=== PATIENT | male | born 1965 | race Caucasian/White ===

== ENCOUNTER 2017-11-07 10:44 | Emergency (ER) | payer MEDICARE, OTHER ==
[2017-11-07] MEDS: INDOMETHACIN 50 MG PO (14:11)
== END 2017-11-07 15:00 | disposition home or self-care (01) ==
LOC: FTE 10:44
DX: R22.41 Localized swelling, mass and lump, right lower limb (principal); R22.42 Localized swelling, mass and lump, left lower limb; M79.671 Pain in right foot; M79.672 Pain in left foot
CPT/HCPCS: 99283

== ENCOUNTER 2018-02-14 08:12 | Emergency (ER) | payer MEDICARE, OTHER ==
[2018-02-14] MEDS: traMADol 50 MG TAB PO (08:46)
== END 2018-02-14 09:04 | disposition home or self-care (01) ==
LOC: FTE 08:12
DX: M10.9 Gout, unspecified (principal)
CPT/HCPCS: 99284

== ENCOUNTER 2018-02-25 23:23 | Inpatient (IN) | payer MEDICARE, OTHER ==
[2018-02-26] MEDS: ONDANSETRON (ODT) 4 MG TAB ODT (00:09)
[2018-02-26] MEDS: KETOROLAC 60 MG INJ IM (00:09)
[2018-02-26] MEDS: ACETAMINOPHEN 500 MG TAB PO (00:09)
[2018-02-26 00:38] LABS: WHITE BLOOD COUNT 14.6 10^3/ul (4.8-10.8)
[2018-02-26 00:38] LABS: ABNORMAL IP MESSAGE 1; HEMATOCRIT 21.1 % (42.0-52.0); MEAN CORPUSCULAR HEMOGLOBIN 18.4 pg (29.0-33.0); MEAN CORPUSCULAR HGB CONC 27.5 g/dl (32.0-37.0); MEAN PLATELET VOLUME 9.7 fl (7.4-10.4); NUCLEATED RED BLOOD CELLS% 0.1 /100WBC (0.0-0.0); PLATELET COUNT 546 10^3/UL (140-415); POSITIVE DIFF @See below; RED BLOOD COUNT 3.15 10^6/ul (4.70-6.10); RED CELL DISTRIBUTION WIDTH 17.4 % (11.5-14.5)
[2018-02-26 00:47] LABS: HEMOGLOBIN 5.8 g/dl (14.0-18.0); PATH REVIEW? YES
[2018-02-26 00:48] LABS: ADD MAN DIFF? YES
[2018-02-26 00:55] LABS: ADD UMIC NO; UR ASCORBIC ACID NEGATIVE (NEGATIVE); UR BILIRUBIN (Dip) NEGATIVE (NEGATIVE); UR BLOOD (Dip) NEGATIVE (NEGATIVE); UR CLARITY CLEAR (CLEAR); UR COLOR YELLOW (YELLOW); UR GLUCOSE (Dip) NEGATIVE (NEGATIVE); UR KETONES (Dip) NEGATIVE (NEGATIVE); UR LEUKOCYTE ESTERASE (Dip) NEGATIVE Leu/ul (NEGATIVE); UR NITRITE (Dip) NEGATIVE (NEGATIVE); UR SPECIFIC GRAVITY (Dip) 1.012 (1.003-1.030); UR TOTAL PROTEIN (Dip) NEGATIVE (NEGATIVE); UR UROBILINOGEN (Dip) 2+ mg/dL (NEGATIVE)
[2018-02-26 01:02] LABS: ALANINE AMINOTRANSFERASE 11 IU/L (13-69); ALBUMIN 3.5 g/dl (3.3-4.9); ALBUMIN/GLOBULIN RATIO 0.79; ALKALINE PHOSPHATASE 86 IU/L (42-121); ANION GAP 14 (8-16); ASPARTATE AMINO TRANSFERASE 15 IU/L (15-46); BILIRUBIN,INDIRECT 0.2 mg/dl (0-1.1); BILIRUBIN,TOTAL 0.2 mg/dl (0.2-1.3); BLOOD UREA NITROGEN 13 mg/dl (7-20); CALCIUM 9.2 mg/dl (8.4-10.2); CARBON DIOXIDE 26 mmol/L (21-31); CHLORIDE 103 mmol/L (97-110); CREATININE 1.15 mg/dl (0.61-1.24); GLUCOSE 157 mg/dl (70-220); LIPASE 77 U/L (23-300); POTASSIUM 3.2 mmol/L (3.5-5.1); SODIUM 140 mmol/L (135-144); TOTAL PROTEIN 7.9 g/dl (6.1-8.1)
[2018-02-26 01:59] LABS: ANISOCYTOSIS 3+ (0-0); EOSINOPHILS % (M) 1 % (0-7); GIANT THROMBO% (M) 2 % (0-0); HYPOCHROMASIA 3+ (0-0); LYMPHOCYTES #M 1.6 10^3/ul (0.8-2.9); LYMPHOCYTES % (M) 11 % (15-51); MICROCYTOSIS 3+ (0-0); MONOCYTE #M 0.5 10^3/ul (0.3-0.9); MONOCYTES % (M) 4 % (0-11); OVALOCYTES 1+ (0-0); PLATELET ESTIMATE INCREASED; POIKILOCYTOSIS 1+ (0-0); POLYCHROMASIA 2+ (0-0); PROMYELOCYTES #M 0.1 10^3/ul (0-0); PROMYELOCYTES % (M) 1 % (0-0); SEGMENTED NEUTROPHILS (M) % 83 % (39-77); TEAR DROP CELLS 1+ (0-0)
[2018-02-26] MEDS: FAMOTIDINE 20 MG INJ IV (02:20)
[2018-02-26] MEDS: ONDANSETRON 4 MG INJ IV (02:20)
[2018-02-26] MEDS: morphine 2 MG INJ IV (02:20)
[2018-02-26] MEDS: LIDOCAINE/MYLANTA 40 ML BTL PO (02:33)
[2018-02-26 02:58] LABS: INR 1.09; PARTIAL THROMBOPLASTIN TIME 36.2 Sec (25.0-35.0); PROTIME 14.2 Sec (11.9-14.9); PT RATIO 1.1
[2018-02-26 03:24] LABS: TROPONIN-I < 0.012 ng/ml (0.00-0.12)
[2018-02-26] MEDS ORDERED: POTASSIUM CHLORIDE (SR) 20 MEQ TAB PO (04:09)
[2018-02-26] MEDS ORDERED: CEFTRIAXONE 1 GM/50 ML (PMX) 50 ML IVPB (04:30)
[2018-02-26] MEDS: POTASSIUM CHLORIDE (SR) 20 MEQ TAB PO (05:22)
[2018-02-26] MEDS: CEFTRIAXONE 1 GM/50 ML (PMX) 50 ML IVPB (06:37)
[2018-02-26] MEDS ORDERED: ONDANSETRON 4 MG INJ IV (07:00)
[2018-02-26] MEDS ORDERED: NACL 0.9% 3 ML SYG IV (07:00)
[2018-02-26] MEDS: D5-NS + KCL 20 MEQ 1,000 ML IV ×2 (07:00→17:00)
[2018-02-26] MEDS: PANTOPRAZOLE 40 MG INJ IV ×2 (08:57→18:32)
[2018-02-26] MEDS: POTASSIUM CHLORIDE 100 ML IVPB (08:57)
[2018-02-26 09:13] LABS: ADD MAN DIFF? NO
[2018-02-26 09:18] LABS: WHITE BLOOD COUNT 9.3 10^3/ul (4.8-10.8)
[2018-02-26 09:18] LABS: ABNORMAL IP MESSAGE 1; BASOPHILS % 0.1 % (0.0-2.0); EOSINOPHILS # 0.5 10^3/ul (0.0-0.5); EOSINOPHILS % 5.7 % (0.0-7.0); HEMATOCRIT 18.9 % (42.0-52.0); LYMPHOCYTES # 1.6 10^3/ul (0.8-2.9); LYMPHOCYTES % 17.5 % (15.0-51.0); MEAN CORPUSCULAR HEMOGLOBIN 18.1 pg (29.0-33.0); MEAN CORPUSCULAR VOLUME 67.3 fl (82.0-101.0); MEAN PLATELET VOLUME 10.1 fl (7.4-10.4); MONOCYTE # 0.7 10^3/ul (0.3-0.9); MONOCYTES % 7.2 % (0.0-11.0); NEUTROPHIL # 6.5 10^3/ul (1.6-7.5); PLATELET COUNT 461 10^3/UL (140-415); POSITIVE DIFF @See below; RED BLOOD COUNT 2.81 10^6/ul (4.70-6.10); RED CELL DISTRIBUTION WIDTH 17.6 % (11.5-14.5)
[2018-02-26 09:27] LABS: HEMOGLOBIN 5.1 g/dl (14.0-18.0)
[2018-02-26 09:32] LABS: IRON 19 ug/dl (35-150)
[2018-02-26 09:41] LABS: % IRON SATURATION 6 % SAT (22-52); TOTAL IRON BINDING CAPACITY 327 ug/dl (241-421)
[2018-02-26 10:51] LABS: ALANINE AMINOTRANSFERASE 13 IU/L (13-69); ALBUMIN 3.1 g/dl (3.3-4.9); ALBUMIN/GLOBULIN RATIO 0.79; ALKALINE PHOSPHATASE 72 IU/L (42-121); ANION GAP 14 (8-16); ASPARTATE AMINO TRANSFERASE 12 IU/L (15-46); BILIRUBIN,INDIRECT 0.1 mg/dl (0-1.1); BILIRUBIN,TOTAL 0.1 mg/dl (0.2-1.3); BLOOD UREA NITROGEN 14 mg/dl (7-20); CALCIUM 8.3 mg/dl (8.4-10.2); CARBON DIOXIDE 23 mmol/L (21-31); CHLORIDE 104 mmol/L (97-110); CREATININE 1.17 mg/dl (0.61-1.24); GLUCOSE 150 mg/dl (70-220); MAGNESIUM 2.4 mg/dl (1.7-2.5); SODIUM 138 mmol/L (135-144)
[2018-02-26 10:54] LABS: POTASSIUM 2.8 mmol/L (3.5-5.1)
[2018-02-26 13:30] LABS: POTASSIUM 3.7 mmol/L (3.5-5.1)
[2018-02-26 15:27] LABS: HEPATITIS B SURFACE ANTIGEN NEGATIVE (NEGATIVE)
[2018-02-26 15:44] LABS: HEPATITIS B CORE ANTIBODY NEGATIVE (NEGATIVE)
[2018-02-26 15:45] LABS: HEPATITIS B SURFACE ANTIBODY NEGATIVE (NEGATIVE)
[2018-02-26 15:53] LABS: HEPATITIS C VIRAL ANTIBODY REACTIVE (NEGATIVE)
[2018-02-27] MEDS: D5-NS + KCL 20 MEQ 1,000 ML IV ×3 (06:03→20:16)
[2018-02-27] MEDS: PANTOPRAZOLE 40 MG INJ IV ×2 (06:03→17:07)
[2018-02-27 09:44] LABS: ADD MAN DIFF? NO
[2018-02-27 09:50] LABS: WHITE BLOOD COUNT 11.3 10^3/ul (4.8-10.8)
[2018-02-27 09:50] LABS: BASOPHIL # 0.1 10^3/ul (0.0-0.1); BASOPHILS % 0.4 % (0.0-2.0); EOSINOPHILS # 0.5 10^3/ul (0.0-0.5); EOSINOPHILS % 4.5 % (0.0-7.0); HEMATOCRIT 25.2 % (42.0-52.0); HEMOGLOBIN 7.6 g/dl (14.0-18.0); LYMPHOCYTES # 1.7 10^3/ul (0.8-2.9); LYMPHOCYTES % 14.8 % (15.0-51.0); MEAN CORPUSCULAR HEMOGLOBIN 21.5 pg (29.0-33.0); MEAN CORPUSCULAR HGB CONC 30.2 g/dl (32.0-37.0); MEAN CORPUSCULAR VOLUME 71.2 fl (82.0-101.0); MEAN PLATELET VOLUME 9.7 fl (7.4-10.4); MONOCYTE # 0.8 10^3/ul (0.3-0.9); MONOCYTES % 6.8 % (0.0-11.0); NEUTROPHIL # 8.2 10^3/ul (1.6-7.5); NEUTROPHILS % 72.5 % (39.0-77.0); NUCLEATED RED BLOOD CELLS% 0.2 /100WBC (0.0-0.0); PLATELET COUNT 482 10^3/UL (140-415); RED BLOOD COUNT 3.54 10^6/ul (4.70-6.10); RED CELL DISTRIBUTION WIDTH 19.8 % (11.5-14.5)
[2018-02-27 10:18] LABS: ALANINE AMINOTRANSFERASE 17 IU/L (13-69); ALBUMIN 3.1 g/dl (3.3-4.9); ALBUMIN/GLOBULIN RATIO 0.81; ALKALINE PHOSPHATASE 78 IU/L (42-121); ANION GAP 12 (8-16); ASPARTATE AMINO TRANSFERASE 13 IU/L (15-46); BILIRUBIN,INDIRECT 0.5 mg/dl (0-1.1); BILIRUBIN,TOTAL 0.5 mg/dl (0.2-1.3); BLOOD UREA NITROGEN 13 mg/dl (7-20); CALCIUM 8.3 mg/dl (8.4-10.2); CARBON DIOXIDE 24 mmol/L (21-31); CHLORIDE 110 mmol/L (97-110); CREATININE 1.11 mg/dl (0.61-1.24); GLUCOSE 109 mg/dl (70-220); POTASSIUM 3.7 mmol/L (3.5-5.1); SODIUM 142 mmol/L (135-144); TOTAL PROTEIN 6.9 g/dl (6.1-8.1)
[2018-02-27 10:22] LABS: PHOSPHORUS 3.2 mg/dl (2.5-4.9)
[2018-02-27 11:48] LABS: HEMOGLOBIN A1C 5.7 % (0-5.9)
[2018-02-27 15:37] LABS: PATH REVIEW CH
[2018-02-28] MEDS: morphine 2 MG INJ IV (02:59)
[2018-02-28] MEDS: PANTOPRAZOLE 40 MG INJ IV ×2 (05:41→17:38)
[2018-02-28] MEDS: MIDAZOLAM 1 MG/ML 2 ML INJ (07:35)
[2018-02-28] MEDS: LIDOCAINE 2% (SDV) 5 ML INJ (07:35)
[2018-02-28] MEDS: PROPOFOL 20 ML (07:36)
[2018-02-28 08:50] LABS: ADD MAN DIFF? NO
[2018-02-28 08:53] LABS: BASOPHIL # 0.1 10^3/ul (0.0-0.1); BASOPHILS % 0.5 % (0.0-2.0); EOSINOPHILS # 0.5 10^3/ul (0.0-0.5); HEMATOCRIT 24.5 % (42.0-52.0); HEMOGLOBIN 7.2 g/dl (14.0-18.0); LYMPHOCYTES # 2.1 10^3/ul (0.8-2.9); LYMPHOCYTES % 15.9 % (15.0-51.0); MEAN CORPUSCULAR HEMOGLOBIN 20.9 pg (29.0-33.0); MEAN CORPUSCULAR HGB CONC 29.4 g/dl (32.0-37.0); MEAN CORPUSCULAR VOLUME 71.2 fl (82.0-101.0); MEAN PLATELET VOLUME 9.9 fl (7.4-10.4); MONOCYTE # 0.9 10^3/ul (0.3-0.9); MONOCYTES % 6.8 % (0.0-11.0); NEUTROPHIL # 9.4 10^3/ul (1.6-7.5); NUCLEATED RED BLOOD CELLS% 0.2 /100WBC (0.0-0.0); PLATELET COUNT 578 10^3/UL (140-415); RED BLOOD COUNT 3.44 10^6/ul (4.70-6.10)
[2018-02-28] MEDS: D5-NS + KCL 20 MEQ 1,000 ML IV (09:00)
[2018-02-28 09:18] LABS: ALANINE AMINOTRANSFERASE 19 IU/L (13-69); ALBUMIN 3.2 g/dl (3.3-4.9); ALBUMIN/GLOBULIN RATIO 0.78; ALKALINE PHOSPHATASE 85 IU/L (42-121); ANION GAP 13 (8-16); ASPARTATE AMINO TRANSFERASE 16 IU/L (15-46); BILIRUBIN,INDIRECT 0.4 mg/dl (0-1.1); BILIRUBIN,TOTAL 0.4 mg/dl (0.2-1.3); BLOOD UREA NITROGEN 11 mg/dl (7-20); CALCIUM 8.5 mg/dl (8.4-10.2); CARBON DIOXIDE 24 mmol/L (21-31); CHLORIDE 108 mmol/L (97-110); CREATININE 1.14 mg/dl (0.61-1.24); GLUCOSE 112 mg/dl (70-220); POTASSIUM 3.8 mmol/L (3.5-5.1); SODIUM 141 mmol/L (135-144); TOTAL PROTEIN 7.3 g/dl (6.1-8.1)
[2018-02-28 09:19] LABS: IRON 21 ug/dl (35-150)
[2018-02-28 09:27] LABS: URIC ACID 7.1 mg/dl (3.1-7.9)
[2018-02-28 09:28] LABS: % IRON SATURATION 6 % SAT (22-52); TOTAL IRON BINDING CAPACITY 332 ug/dl (241-421)
[2018-02-28 09:59] LABS: FERRITIN 31.8 ng/ml (11.1-264.0)
[2018-02-28 10:10] LABS: B-TYPE NATRIURETIC PEPTIDE 909 PG/ML (0-125)
[2018-02-28] MEDS: HYDROCODONE/APAP (5/325) TAB PO (12:48)
[2018-02-28 22:07] LABS: IMMEDIATE SPIN CROSSMATCH 1 3
[2018-03-01] MEDS: morphine 2 MG INJ IV (00:19)
[2018-03-01] MEDS: PANTOPRAZOLE 40 MG INJ IV ×2 (05:49→17:29)
[2018-03-01 12:26] LABS: ADD MAN DIFF? NO
[2018-03-01 12:39] LABS: WHITE BLOOD COUNT 11.3 10^3/ul (4.8-10.8)
[2018-03-01 12:39] LABS: BASOPHILS % 0.4 % (0.0-2.0); EOSINOPHILS # 0.4 10^3/ul (0.0-0.5); EOSINOPHILS % 3.4 % (0.0-7.0); HEMATOCRIT 31.7 % (42.0-52.0); HEMOGLOBIN 9.4 g/dl (14.0-18.0); LYMPHOCYTES # 1.8 10^3/ul (0.8-2.9); LYMPHOCYTES % 15.4 % (15.0-51.0); MEAN CORPUSCULAR HGB CONC 29.7 g/dl (32.0-37.0); MEAN CORPUSCULAR VOLUME 74.1 fl (82.0-101.0); MEAN PLATELET VOLUME 9.6 fl (7.4-10.4); MONOCYTE # 0.7 10^3/ul (0.3-0.9); MONOCYTES % 6.5 % (0.0-11.0); NEUTROPHIL # 8.3 10^3/ul (1.6-7.5); NEUTROPHILS % 73.4 % (39.0-77.0); RED BLOOD COUNT 4.28 10^6/ul (4.70-6.10)
[2018-03-01 12:46] LABS: ALANINE AMINOTRANSFERASE 15 IU/L (13-69); ALBUMIN 3.5 g/dl (3.3-4.9); ALBUMIN/GLOBULIN RATIO 0.76; ALKALINE PHOSPHATASE 100 IU/L (42-121); ANION GAP 16 (8-16); ASPARTATE AMINO TRANSFERASE 14 IU/L (15-46); BILIRUBIN,INDIRECT 0.7 mg/dl (0-1.1); BILIRUBIN,TOTAL 0.7 mg/dl (0.2-1.3); BLOOD UREA NITROGEN 13 mg/dl (7-20); CALCIUM 8.9 mg/dl (8.4-10.2); CARBON DIOXIDE 25 mmol/L (21-31); CHLORIDE 104 mmol/L (97-110); CREATININE 1.17 mg/dl (0.61-1.24); GLUCOSE 106 mg/dl (70-220); POTASSIUM 4.2 mmol/L (3.5-5.1); SODIUM 141 mmol/L (135-144); TOTAL PROTEIN 8.1 g/dl (6.1-8.1)
[2018-03-01 12:47] LABS: PHOSPHORUS 4.3 mg/dl (2.5-4.9)
[2018-03-01 12:47] LABS: MAGNESIUM 2.1 mg/dl (1.7-2.5)
[2018-03-01 12:59] LABS: PLATELET COUNT 663 10^3/UL (140-415)
[2018-03-01] MEDS: TRIMETHOPRIM/SULFAMETHOX (DS) TAB PO ×2 (14:51→21:03)
[2018-03-01] MEDS: HYDROCODONE/APAP (5/325) TAB PO (14:52)
[2018-03-01] MEDS: SUCRALFATE (100 MG/ML) 10ML CUP PO ×2 (17:29→21:03)
[2018-03-02] MEDS: PANTOPRAZOLE 40 MG INJ IV (06:32)
[2018-03-02] MEDS: TRIMETHOPRIM/SULFAMETHOX (DS) TAB PO (08:25)
[2018-03-02] MEDS: SUCRALFATE (100 MG/ML) 10ML CUP PO ×3 (08:25→17:26)
[2018-03-02] MEDS: PANTOPRAZOLE (EC) 40 MG TAB PO (17:26)
== END 2018-03-02 18:15 | DRG 378 ==
LOC: FTE 23:23 → MS4 02-26 02:22
PROC: 0DJ08ZZ Inspection of Upper Intestinal Tract, Via Natural or Artificial Opening Endoscopic (ICD-10-PCS; principal; 2018-02-27 17:55)
DX: K92.2 Gastrointestinal hemorrhage, unspecified (principal); D62 Acute posthemorrhagic anemia; K22.10 Ulcer of esophagus without bleeding; M06.9 Rheumatoid arthritis, unspecified; M10.9 Gout, unspecified; K92.0 Hematemesis; E87.6 Hypokalemia; D72.829 Elevated white blood cell count, unspecified; K21.0 Gastro-esophageal reflux disease with esophagitis; K44.9 Diaphragmatic hernia without obstruction or gangrene
CPT/HCPCS: 36415; 36430; 71045; 80053; 81003; 82728; 83036; 83540; 83690; 83735; 83880; 84100; 84132; 84484; 84560; 85025; 85610; 85730; 86704; 86706; 86708; 86803; 86850; 86870; 86900; 86901; 86902; 86920; 87081; 87340; 93005; 93970; 96372; 96374; 96375; 97163; 99291-25